=== PATIENT | male | born 1990 | race Caucasian/White ===

== ENCOUNTER 2016-12-31 13:17 | Emergency (ER) | payer BC, OTHER ==
[2016-12-31 13:22] VITALS: BP 117/71
== END 2016-12-31 15:29 | disposition left against medical advice (07) ==
LOC: ED 13:17
DX: R20.0 Anesthesia of skin (principal); Z53.21 Procedure and treatment not carried out due to patient leaving prior to being seen by health care provider

== ENCOUNTER 2018-05-29 22:35 | Emergency (ER) | payer OTHER ==
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
[2018-05-30 02:21] VITALS: BP 121/76
== END 2018-05-30 02:21 | disposition home or self-care (01) ==
LOC: ED 22:35
DX: S06.0X9A Concussion with loss of consciousness of unspecified duration, initial encounter (principal); S00.83XA Contusion of other part of head, initial encounter; Y04.2XXA Assault by strike against or bumped into by another person, initial encounter; Y92.159 Unspecified place in reform school as the place of occurrence of the external cause; Y99.0 Civilian activity done for income or pay; K02.9 Dental caries, unspecified; Z88.1 Allergy status to other antibiotic agents
CPT/HCPCS: 70450; 70486; 99281